=== PATIENT | female | born 1975 | race Caucasian/White ===

== ENCOUNTER 2016-11-09 07:23 | Emergency (ER) | payer BC ==
[2016-11-09 07:32] VITALS: BP 119/70
[2016-11-09 08:17] LABS: Basophils % (Auto) 0.4 % (0.0-1.8); Hemoglobin 13.4 gm/dl (10.1-14.3); Mean Corpuscular HGB Conc 34 % (30-34); Mean Corpuscular Hemoglobin 27 pg (28-32); Mean Corpuscular Volume 78 fl (79-97); Platelet Count 229 K/mm3 (140-440); Red Blood Count 4.97 M/mm3 (3.65-5.03); Red Cell Distribution Width 13.6 % (13.2-15.2); White Blood Count 6.3 K/mm3 (4.5-11.0)
[2016-11-09 08:23] LABS: Bilirubin,Urine NEG (Negative); Blood,Urine NEG (Negative); Ketones,Urine NEG (Negative); Leukocyte Esterase,Urine NEG (Negative); Nitrite,Urine NEG (Negative); Protein,Urine <15 mg/dL mg/dL (Negative); Urobilinogen,Urine < 2.0 mg/dL (<2.0); WBC,Urine < 1.0 /HPF (0.0-6.0)
[2016-11-09 08:28] LABS: Alanine Aminotransferase 10 units/L (7-56); Albumin 3.5 g/dL (3.9-5); Albumin/Globulin Ratio 1.1 %; Alkaline Phosphatase 42 units/L (35-129); Anion Gap 14 mmol/L; BUN/Creatinine Ratio 13.33; Blood Urea Nitrogen 8 mg/dL (7-17); Calcium 8.8 mg/dL (8.4-10.2); Carbon Dioxide 26 mmol/L (22-30); Chloride 105.2 mmol/L (98-107); Glucose 81 mg/dL (65-100); Lipase 30 units/L (13-60); Potassium 4.5 mmol/L (3.6-5.0); Sodium 141 mmol/L (137-145); Total Protein 6.7 g/dL (6.3-8.2)
== END 2016-11-09 19:55 | disposition left against medical advice (07) ==
LOC: ED 07:23
DX: R10.9 Unspecified abdominal pain (principal); Z53.21 Procedure and treatment not carried out due to patient leaving prior to being seen by health care provider
CPT/HCPCS: 36415; 80053; 81001; 83690; 85025

== ENCOUNTER 2020-03-28 21:58 | Inpatient (IN) | payer BC, MEDICAID ==
[2020-03-28] MEDS ORDERED: LIDOCAINE (2%) 20 MG/1 ML VIAL 20 ML MDV INFILTRATI ONE (22:58)
[2020-03-28] MEDS ORDERED: fentaNYL 100 MCG/2 ML INJ IV PRN (22:58)
[2020-03-28] MEDS ORDERED: ONDANSETRON 4 MG/2 ML INJ IV PRN (22:58)
[2020-03-28] MEDS ORDERED: MINERAL OIL 30 ML ORAL LIQD PO PRN (22:58)
[2020-03-28] MEDS ORDERED: ePHEDrine SULFATE 50 MG/1 ML INJ IV PRN (22:58)
[2020-03-28] MEDS ORDERED: TERBUTALINE 1 MG/1 ML INJ SUB-Q PRN (22:58)
[2020-03-28] MEDS ORDERED: LACTATED RINGERS 1,000 ML IV SCH (23:00)
[2020-03-28] MEDS ORDERED: OXYTOCIN DRIP 30 UNITS/500 ML BAG IV SCH (23:00)
[2020-03-28 23:27] LABS: Hematocrit 35.5 % (30.3-42.9); Hemoglobin 12.5 gm/dl (10.1-14.3); Mean Corpuscular HGB Conc 35 % (30-34); Mean Corpuscular Volume 83 fl (79-97); Platelet Count 212 K/mm3 (140-440); Red Blood Count 4.28 M/mm3 (3.65-5.03)
--- NOTE | 2020-03-28 23:42 | History and Physical Report ---
History of Present Illness Date of examination: 03/28/20 Date of admission: 03/28/20 22:58 Chief complaint: Contractions History of present illness: 44yo at 40w5d presents with contractions, increasing in intensity and frequency since 1900, now q 3mins. She denies LOF or VB. +FM. NO complaints. complicated by hx of prior CD, followed by successful , AMA, and abnormal 1 hr OGTT. She desires a vaginal delivery. Past History Past Medical History: no pertinent history Past Surgical History: section Family/Genetic History: none Social history: no significant social history - Obstetrical History Expected Date of Delivery: 03/23/20 Actual Gestation: 40 Week(s) 5 Day(s) : 4 Para: 3 Hx # Term Pregnancies: 3 Number of Pregnancies: 0 Spontaneous Abortions: 0 Induced : 0 Number of Living Children: 3 Medications and Allergies Allergies Allergy/AdvReac Type Severity Reaction Status Date / Time No Known Allergies Allergy Verified 11/09/16 07:34 Active Meds: Active Medications Ephedrine Sulfate (Ephedrine Sulfate 50 Mg/1 Ml Inj) 10 mg IV Q2M PRN PRN Reason: Hypotension Fentanyl (Fentanyl 100 Mcg/2 Ml Inj) 100 mcg IV Q2H PRN PRN Reason: Pain,Severe (7-10) LABOR PAIN Lactated Ringer's (Lactated Ringers) 1,000 mls @ 125 mls/hr IV DIRECT GOLDEN Oxytocin/Sodium Chloride (Pitocin/Ns 30 Unit/500ml) 30 units in 500 mls @ 40 mls/hr IV TITR GOLDEN; Protocol Mineral Oil (Mineral Oil 30 Ml Oral Liqd) 30 ml PO QHS PRN PRN Reason: Constipation Ondansetron HCl (Ondansetron 4 Mg/2 Ml Inj) 4 mg IV Q8H PRN PRN Reason: Nausea And Vomiting Terbutaline Sulfate (Terbutaline 1 Mg/1 Ml Inj) 0.25 mg SUB-Q ONCE PRN PRN Reason: Hyperstimulation/Hypertonicity Review of Systems Cardiovascular: edema, no chest pain, no syncope, no shortness of breath Respiratory: no cough Gastrointestinal: no abdominal pain - Vital Signs Vital signs: Vital Signs Temp Pulse Resp BP Pulse Ox 98.3 F 74 18 116/73 99 03/28/20 22:09 03/28/20 22:09 03/28/20 22:09 03/28/20 22:09 03/28/20 22:09 Temp Pulse Resp BP Pulse Ox 98.3 F 66 18 107/60 100 03/28/20 23:12 03/28/20 23:37 03/28/20 23:12 03/28/20 23:12 03/28/20 23:37 - Physical Exam Breasts: Positive: deferred Cardiovascular: Regular rate Lungs: Positive: Clear to auscultation Abdomen: Positive: other (gravid) Genitourinary (Female): Positive: normal external genitalia Uterus: Positive: normal size Extremities: Positive: edema - Obstetrical FHR: category 1 Cervical Dilatation: 7 Cervical Effacement Percentage: 80 station: -3 Uterine Contraction Frequency (min): q2 Uterine Contraction Pattern: Regular Uterine Contraction Intensity: Moderate Results Result Diagrams: 03/28/20 23:09 Abnormal lab results 03/28/20 Range/Units 23:09 MCHC 35 H (30-34) % All other labs normal. Assessment and Plan anticipate vaginal delivery - Patient Problems (1) Active labor at term Current Visit: Yes Status: Acute Plan to address problem: patient desires epidural -PNC per [facility]. Labs reviewed. O+/GBS neg -plan for AROM next check -additional augmentation as needed (2) Previous section Current Visit: Yes Status: Acute (3) AMA (advanced maternal age) multigravida 35+ Current Visit: Yes Status: Acute
--- NOTE | 2020-03-29 00:43 | Anesthesia Consultation ---
Anesthesia Consult and Med Hx Date of service: 03/29/20 - Airway Anesthetic Teeth Evaluation: Good ROM Head & Neck: Adequate Mental/Hyoid Distance: Adequate Mallampati Class: Class II Intubation Access Assessment: Probably Good - Pulmonary Exam CTA: Yes - Cardiac Exam Cardiac Exam: RRR - Pre-Operative Health Status ASA Pre-Surgery Classification: ASA2 Proposed Anesthetic Plan: Epidural - Pulmonary Hx Smoking: No Hx Sleep Apnea: No - Cardiovascular System Hx Hypertension: No Hx Heart Attack/AMI: No Hx Angina: No - Gastrointestinal Hx Gastroesophageal Reflux Disease: No - Endocrine Hx Renal Disease: No Hx Insulin Dependent Diabetes: No Hx Non-Insulin Dependent Diabetes: No - Other Systems Hx Alcohol Use: No
[2020-03-29] MEDS ORDERED: NalbUPHINE 10 MG/1 ML INJ IV PRN (00:44)
[2020-03-29] MEDS ORDERED: diphenhydrAMINE 50 MG/ML VIAL IV PRN (00:44)
[2020-03-29] MEDS ORDERED: NALOXONE 2 MG/2 ML INJ IV PRN (00:44)
--- NOTE | 2020-03-29 00:44 | Progress Note ---
Labor Epidural - Labor Epidural Start Time: 00:15 Stop Time: 00:35 Performed by:: AHMET PACE Procedure: Patient is requesting epidural for labor and pain. H&P, labs were reviewed. Patient IDed, H&P reviewed, all questions and concerns were answered, and consent was signed. Timeout was performed at bedside. Patient in sitting position. Sterile prep and drape was performed. 3ml of 1% lidocaine skin wheal at L[3]- L [4]. 18-gauge Tuohy epidural needle was advanced to loss of resistance with air technique cm. Negative CSF negative blood. Epidural catheter advanced to [12 ] centimeters. [negative] Aspiration [negative] test dose. Sterile dressing applied. Patient tolerated procedure.
[2020-03-29] MEDS ORDERED: fentaNYL-BUPIV 2 MCG/ML-0.125% 200 MCG/100 ML BAG EPIDURAL SCH (01:00)
[2020-03-29] MEDS ORDERED: BICITRA ORAL LIQD 30ML ONE (01:34)
[2020-03-29] MEDS ORDERED: METOCLOPRAMIDE 10 MG/2 ML INJ ONE (01:34)
[2020-03-29] MEDS ORDERED: FAMOTIDINE 20 MG/2 ML INJ IV ONE ×2 (01:34→01:45)
[2020-03-29] MEDS ORDERED: METOCLOPRAMIDE 10 MG/2 ML INJ IV NR (01:40)
[2020-03-29] MEDS ORDERED: BICITRA ORAL LIQD 30ML PO ONE (01:45)
[2020-03-29] MEDS ORDERED: LIDOCAINE 2%/EPINEPHRINE 1:200,000 VIAL (20 ML) INFILTRATI ONE (02:04)
[2020-03-29] MEDS ORDERED: ONDANSETRON 4 MG/2 ML INJ ONE (02:04)
[2020-03-29] MEDS ORDERED: KETOROLAC 30 MG/1 ML INJ ONE (02:04)
[2020-03-29] MEDS ORDERED: PHENYLEPHRINE/NS 1,000 MCG/10 ML SYRINGE (OR USE) IV ONE (02:13)
[2020-03-29] MEDS ORDERED: OXYTOCIN 10 UNIT/1 ML INJ ONE ×2 (02:31→02:56)
[2020-03-29] MEDS ORDERED: ePHEDrine SULFATE 50 MG/1 ML INJ ONE (02:31)
[2020-03-29] MEDS ORDERED: SODIUM CHLORIDE 0.9% 500 ML 500 ML IV ONE ×2 (02:33→03:27)
[2020-03-29] MEDS ORDERED: METHYLERGONOVINE MALEATE 0.2 MG/ML VIAL IM PRN (02:40)
[2020-03-29] MEDS ORDERED: CARBOPROST TROMETHAMINE 250 MCG/1 ML INJ IM ONE (02:51)
[2020-03-29] MEDS ORDERED: LACTATED RINGERS 1,000 ML ONE (02:56)
[2020-03-29] MEDS ORDERED: SODIUM CHLORIDE 0.9% 500 ML 500 ML ONE (02:56)
[2020-03-29] MEDS ORDERED: MORPHINE PF 10MG/10 ML AMPULE ONE (03:01)
[2020-03-29] MEDS ORDERED: miSOPROStol 200 MCG TAB ONE (03:03)
[2020-03-29] MEDS ORDERED: KETAMINE/STERILE WATER 50 MG/ML SYRINGE ONE (03:28)
[2020-03-29] MEDS ORDERED: MORPHINE 4 MG/1 ML INJ IV PRN (04:00)
[2020-03-29] MEDS ORDERED: LANOLIN/ZINC/DIMETHICONE (LANSINOH) 7 GM TP PRN (04:00)
[2020-03-29] MEDS ORDERED: WITCH HAZEL/ GLYCERIN PAD TP PRN (04:00)
[2020-03-29] MEDS ORDERED: PROMETHAZINE 25 MG RECT SUPP PR PRN (04:00)
[2020-03-29] MEDS ORDERED: OXYTOCIN DRIP 30 UNITS/500 ML BAG IV SCH (04:00)
[2020-03-29] MEDS ORDERED: oxyCODONE /ACETAMINOPHEN 5-325MG TAB PO PRN (04:00)
[2020-03-29] MEDS ORDERED: IBUPROFEN 600 MG TAB PO PRN (04:00)
[2020-03-29] MEDS ORDERED: PROMETHAZINE 25 MG TAB PO PRN (04:08)
--- NOTE | 2020-03-29 04:08 | Anesthesia Day of Surgery ---
Anesthesia Day of Surgery - Day of Surgery Patient Examined: Yes Patient H&P Reviewed: Yes Patient is NPO: Yes Beta Blockers: No Cardiac Clearance: No Pulmonary Clearance: No Jose Angel's Test: N/A
--- NOTE | 2020-03-29 04:11 | Procedure Note ---
OB Delivery Note - Delivery Date of Delivery: 03/29/20 Surgeon: ANNIA ROLDAN Estimated blood loss: other (1999) - Section Preop diagnosis: repeat , nonreassuring FHR tracing Postop diagnosis: same section procedure: repeat low transverse Disposition: PACU Complications: transfusion, intra-op hemorrhage, uterine atony Narrative: Transfused 1 unit PRBC Uterine Atony: s/p Methergine x2, Hemabate x 2, B hayes suture - A at 1 minute: 8 at 5 minutes: 9 Infant Gender: Male
--- NOTE | 2020-03-29 08:08 | Operative Report ---
Operative Report Operative Report: Date of procedure: March 29, 2020 Preoperative diagnosis: 1) IUP at 41w5d 2) Prior Delivery 3) Nonreassuring Heart Tones 4)Obesity Postoperative diagnosis: Same 5) Uterine Atony Procedure: Repeat low transverse section Surgeon: To Rangel M.D. Anesthesia: Regional Findings: 1) Viable male , Apgars 8 and 8, weight 3224 g, (7 lb 1.7 oz) in cephalic presentation. Occiput Posterior. 2) Normal-appearing uterus ovaries and tubes Estimated blood loss: 2000 mL IV fluids: 2000 mL Urine output: 200 mL Drains: Omer to gravity Specimens: Placenta to pathology Complications:None. Counts correct x 3 Disposition: Stable to PACU Indication for procedure: Pt is a 44 year old at 41w5d was admitted in active labor. Patient with history of previous delivery, desiring a TOLAC. She has had a successful . Intrapartum monitoring was significant for NRFHT, with prolonged heart rate deceleration in the 90s. The decision was made to proceed to section. Operation in detail: After the risks, benefits, alternatives and complications were explained to the patient she gave informed consent for the procedure. She was subsequently taken to the operating room where regional anesthesia was noted to be adequate. She was placed in the dorsal supine position with leftward tilt and prepped and draped in a normal sterile fashion. heart tones were noted prior to incision. A timeout was performed. A Pfannenstiel skin incision was made with the knife and carried down to the layer of the fascia with the Bovie. The fascia was incised in the midline and the fascial incision was extended bilaterally with the Petty scissors. The fascial incision was then stretched. The rectus muscles were then in the midline and partially transected for adequate visualization. The peritoneum was then entered bluntly. The peritoneal incision was extended with good visualization of the bladder. The peritoneal incision was then stretched. An Valeriano retractor was placed. The bladder blade was then placed. A transverse incision was made in the lower uterine segment with a knife and extended bilaterally with the bandage scissors. head delivered with ease, followed by shoulders and body. Cord clamped and cut. handed to NICU staff in attendance. Cord blood and cord gases were collected. The placenta was then delivered with gentle traction. The uterus was cleared of blood and clots. The hysterotomy was then reapproximated with 0 Vicryl in a running locked fashion. A second layer of the same suture was used in imbricating fashion. The hysterotomy was inspected, bleeding in the lateral margin was noted. Continued uterine atony was appreciated. The Valeriano retractor was removed. The uterus was then exteriorized, manual massage and IM methergine was given. Atony improved. A figure of eight stitch was placed in the lateral margin in the area of bleeding. Atony was again appreciated as well as bleeding from the edge of the incision. Areas of bleeding was coagulated using the bovie. As the atony persisted despite the addition of uterotonics and massage, a b hayes suture was placed using an 0 Monocryl. Uterine tone improved. Bleeding was appreciated in the midline, anoth er figure of eight stitch using 0 vicryl was placed. Reinspection was significant for adequate hemostasis. The uterus was returned to the abdomen. The hysterotomy was again inspected and noted to be hemostatic. Interceed and surgiflow was placed on the incisional edge. Adequate uterine tone was again appreciated. The Valeriano retractor was removed. The rectus muscle was reapproximated. The fascia was reapproximated with 0 PDS in a running fashion. The subcutaneous tissue was reapproximated with 2-0 Vicryl in a running fashion. The skin was reapproximated with cj. The incision was then covered with a pressure dressing. The procedure was then ended. The patient tolerated the procedure well and was taken to the PACU in stable condition. All instrument, lap, and needle counts were correct 3.
[2020-03-29 08:52] LABS: Hematocrit 33.2 % (30.3-42.9); Hemoglobin 11.8 gm/dl (10.1-14.3)
--- NOTE | 2020-03-29 09:46 | Event Note ---
Patient 5 hour postop. Pain controlled. VSS. No complaints. Abd distended, but soft. Uterus firm. Incision dressing clean/dry. Scant Lochia. A/P POD 0 -continue to monitor. Repeat H/H 6 hours from previous -if stable, ok to proceed with routine postoperative/PP care.
[2020-03-29] MEDS: SIMETHICONE 80 MG CHEW TAB PO PRN (15:57)
[2020-03-29 16:03] LABS: Hematocrit 33.1 % (30.3-42.9); Hemoglobin 11.5 gm/dl (10.1-14.3)
[2020-03-30] MEDS: SIMETHICONE 80 MG CHEW TAB PO PRN ×2 (08:53→18:24)
--- NOTE | 2020-03-30 09:50 | Progress Note ---
Assessment and Plan A: POD#1 s/p repeat at term Acute blood loss anemia s/p 2 units PRBCs AMA P: Routine postop care Begin bowel regimen Hold clear liquids until flatus Subjective - Subjective Date of service: 03/30/20 Principal diagnosis: s/p repeat section Interval history: Pt without complaints. Patient reports: appetite normal, pain well controlled, ambulating normally, no flatus, no bowel movement : doing well Objective - Vital Signs Latest vital signs: Vital Signs Temp Pulse Resp BP BP Pulse Ox 03/30/20 00:11 18 03/30/20 00:04 98.0 F 81 18 95/55 100 03/29/20 19:59 97.7 F 73 20 92/46 99 03/29/20 17:43 98 F 20 98 03/29/20 17:13 80 98/55 99 03/29/20 16:28 98.1 F 75 16 105/61 105/61 99 03/29/20 16:26 91 H 98 03/29/20 16:21 87 100 03/29/20 16:16 82 99 03/29/20 16:11 80 99 03/29/20 16:08 90 111/58 03/29/20 16:06 79 99 03/29/20 16:01 79 99 03/29/20 15:56 74 99 03/29/20 15:51 78 98 03/29/20 15:46 76 100 03/29/20 15:41 78 98 03/29/20 15:36 78 100 03/29/20 15:31 76 98 03/29/20 15:26 74 100 03/29/20 15:21 83 100 03/29/20 15:16 77 98 03/29/20 15:11 67 98 03/29/20 15:08 63 98/50 03/29/20 15:06 66 97 03/29/20 15:01 69 98 03/29/20 14:56 68 98 03/29/20 14:51 75 99 03/29/20 14:46 70 98 03/29/20 14:41 69 98 03/29/20 14:38 70 103/55 03/29/20 14:36 68 98 03/29/20 14:31 69 98 03/29/20 14:26 71 100 03/29/20 14:21 83 100 03/29/20 14:16 81 99 03/29/20 14:11 68 99 03/29/20 14:08 65 104/51 03/29/20 14:06 73 99 03/29/20 14:01 76 99 03/29/20 13:56 68 100 03/29/20 13:51 86 100 03/29/20 13:46 70 99 03/29/20 13:41 71 98 03/29/20 13:38 71 95/51 03/29/20 13:36 71 98 03/29/20 13:31 71 98 03/29/20 13:26 72 98 03/29/20 13:21 72 100 03/29/20 13:16 70 98 03/29/20 13:11 76 98 03/29/20 13:08 67 92/54 03/29/20 13:06 81 99 03/29/20 13:01 79 99 03/29/20 12:56 94 H 99 03/29/20 12:51 67 98 03/29/20 12:46 68 98 03/29/20 12:41 69 97 03/29/20 12:38 69 98/54 03/29/20 12:36 72 97 03/29/20 12:31 71 97 03/29/20 12:26 69 96 03/29/20 12:21 74 97 03/29/20 12:16 79 98 03/29/20 12:11 86 97 03/29/20 12:08 71 104/51 03/29/20 12:06 78 99 03/29/20 12:01 76 97 03/29/20 11:57 97.7 F 84 15 106/74 106/74 99 03/29/20 11:56 83 97 03/29/20 11:51 86 98 03/29/20 11:46 89 99 03/29/20 11:41 74 98 03/29/20 11:38 80 94/56 03/29/20 11:36 86 97 03/29/20 11:31 89 98 03/29/20 11:26 80 98 03/29/20 11:21 89 99 03/29/20 11:16 87 98 03/29/20 11:11 83 98 03/29/20 11:08 84 109/61 03/29/20 11:06 89 98 03/29/20 11:01 95 H 99 03/29/20 10:57 117 H 94 03/29/20 10:56 91 H 99 03/29/20 10:51 74 98 03/29/20 10:46 77 99 03/29/20 10:41 79 99 03/29/20 10:38 77 99/71 03/29/20 10:36 75 99 03/29/20 10:31 79 99 03/29/20 10:26 70 98 03/29/20 10:21 74 98 03/29/20 10:16 69 98 03/29/20 10:11 70 98 03/29/20 10:08 74 100/59 03/29/20 10:06 74 97 03/29/20 10:01 76 98 03/29/20 09:56 69 98 03/29/20 09:51 87 99 Intake and Output 03/29/20 03/30/20 03/30/20 22:59 06:59 14:59 Intake Total 720 Output Total 310 900 Balance -310 -180 Intake: Oral 480 Intake, Free Water 240 Output: Urine 310 900 Indwelling Catheter 210 Void 100 900 Other: Total, Intake Amount 480 Total, Output Amount 100 600 - Exam Breasts: Present: deferred Abdomen: Present: soft, distention (moderate ) Uterus: Present: fundal height at umbilicus Extremities: Present: edema (trace) - Labs Labs: Abnormal lab results 03/28/20 Range/Units 23:09 Crossmatch See Detail
[2020-03-30] MEDS: MAGNESIUM HYDROXIDE (MOM) ORAL LIQD UDC PO SCH ×2 (10:13→21:50)
[2020-03-30] MEDS: oxyCODONE /ACETAMINOPHEN 5-325MG TAB PO PRN ×2 (10:15→21:52)
--- NOTE | 2020-03-30 14:00 | Post Anesthesia Evaluation ---
- Post Anesthesia Evaluation Patient Participated: Yes Airway Patent: Yes Stable Respiratory Function: Yes Nausea/Vomiting: No Temp > 96.8F: Yes Pain Manageable: Yes Adequeate Hydration: Yes Anesthesia Complications: No Block Receding Appropriately: Yes Patient on Ventilator: No
--- NOTE | 2020-03-31 07:40 | Progress Note ---
Assessment and Plan A: POD#2 s/p repeat at term Acute blood loss anemia s/p 2 units PRBCs AMA P: Routine postop care Discharge later today with follow up in 1 week for staple removal Subjective - Subjective Date of service: 03/31/20 Principal diagnosis: s/p repeat section Interval history: Pt without complaints. She reports having a bowel movement overnight. She would like to go home. Patient reports: appetite normal, voiding normally, pain well controlled, flatus, bowel movement, ambulating normally : doing well, bottle feeding Objective - Vital Signs Latest vital signs: Vital Signs Temp Pulse Resp BP BP Pulse Ox 03/31/20 00:24 97.6 F 77 20 117/62 100 03/30/20 12:47 80 03/30/20 12:45 98.4 F 20 03/30/20 12:42 95/59 03/30/20 08:35 98.8 F 78 18 102/50 100 Intake and Output 03/30/20 03/31/20 03/31/20 22:59 06:59 14:59 Intake Total 120 240 Balance 120 240 Intake: Oral 120 240 Other: Total, Intake Amount 120 120 # Voids Void 1 1 - Exam Breasts: Present: deferred Abdomen: Present: soft. Absent: distention Uterus: Present: fundal height below umbilicus Extremities: Present: edema (trace) Incision: Present: intact (with cj )
--- NOTE | 2020-03-31 07:41 | Discharge Summary ---
Providers - Providers Date of Admission: 03/28/20 22:58 Date of discharge: 03/31/20 Attending physician: MAYLIN CASTILLO Primary care physician: MAYLIN CASTILLO Hospitalization Reason for admission: active labor Delivery: Procedure: section, repeat low transverse Procedure details: Please see operative report. Incision: intact (with cj ) Discharge diagnosis: IUP at term delivered [place] baby: male Hospital course: Pt was admitted in labor and ultimately underwent repeat section complicated by acute blood loss requiring transfusion of two units of PRBCs and uterine atony requiring Methergine, Hemabate and B-Page suture placement. Her postoperative course was uneventful and she met discharge criteria on POD#2. She will follow up in 1 week for staple removal. Condition at discharge: Stable Disposition: AR TO HOME OR SELFCARE - Discharge Diagnoses (1) Term of male Status: Acute (2) Acute blood loss as cause of postoperative anemia Status: Acute (3) AMA (advanced maternal age) multigravida 35+ Status: Acute Qualifiers: Trimester: third trimester Qualified Code(s): O09.523 - Supervision of elderly multigravida, third trimester (4) Active labor at term Status: Acute (5) Previous section Status: Acute Plan - Discharge Medications Prescriptions: Ibuprofen [Motrin] 800 mg PO Q8HR PRN #30 tablet PRN Reason: Pain, Moderate (4-6) oxyCODONE /ACETAMINOPHEN [Percocet 5/325] 1 tab PO Q6HR PRN #40 tablet PRN Reason: Pain - Provider Discharge Summary Activity: routine, no sex for 6 weeks, no heavy lifting 4 weeks, no strenuous exercise Diet: routine Instructions: routine Additional instructions: [] Smoking cessation referral if applicable(refer to patient education folder for contact #) [] Refer to [facility] Booklet Call your doctor immediately for: * Fever > 100.5 * Heavy vaginal bleeding ( >1 pad per hour) * Severe persistent headache * Shortness of breath * Reddened, hot, painful area to leg or breast * Drainage or odor from incision. * Keep incision clean and dry at all times and follow doctor's instructions regarding bathing/showering - Follow up plan Follow up: LILA RANDLE MD [Staff Physician] - 04/07/20 (Please call to schedule staple removal appt Please schedule your son's circumcision before he is one month old,if you want him to be circumcised )
[2020-03-31 12:30] VITALS: BP 101/60
== END 2020-03-31 12:04 | disposition home or self-care (01) | DRG 765 ==
LOC: TRG 21:58 → APU 22:06 → LD 22:58 → TRG 22:58 → OB 03-29 17:27
PROVIDERS: ADMIT Obstetrics & Gynecology; ATTEND Obstetrics & Gynecology
PROC: 10D00Z1 Extraction of Products of Conception, Low, Open Approach (ICD-10-PCS; principal; 2020-03-29)
PROC: 30233N1 Transfusion of Nonautologous Red Blood Cells into Peripheral Vein, Percutaneous Approach (ICD-10-PCS; 2020-03-29)
PROC: 3E0R3BZ Introduction of Anesthetic Agent into Spinal Canal, Percutaneous Approach (ICD-10-PCS; 2020-03-29)
PROC: 00HU33Z Insertion of Infusion Device into Spinal Canal, Percutaneous Approach (ICD-10-PCS; 2020-03-29)
DX: O34.211 Maternal care for low transverse scar from previous cesarean delivery (principal); D62 Acute posthemorrhagic anemia; N85.8 Other specified noninflammatory disorders of uterus; O99.02 Anemia complicating childbirth; Z3A.40 40 weeks gestation of pregnancy; Z37.0 Single live birth; O76 Abnormality in fetal heart rate and rhythm complicating labor and delivery; Z3A.00 Weeks of gestation of pregnancy not specified; Z37.9 Outcome of delivery, unspecified; Z20.822 Contact with and (suspected) exposure to COVID-19; O09.523 Supervision of elderly multigravida, third trimester
CPT/HCPCS: 36415; 36430; 59025; 82805; 85014; 85018; 85027; 86592; 86850; 86900; 86901; 86920; 96360; 96361; G0378; C1765; J1885; J2274; J2370; J2405; J2590; J2765; J3490; J7040; J7120; P9016; U0003